=== PATIENT | male | born 1970 | race Caucasian/White ===

== ENCOUNTER → 2017-08-09 | Outpatient (CLI) | payer OTHER | LOC: M.ULTRA 13:17 | DX: N43.3 Hydrocele, unspecified (principal); N50.9 Disorder of male genital organs, unspecified ==

== ENCOUNTER → 2018-04-02 | Outpatient (CLI) | payer OTHER | LOC: M.RAD 13:27 | DX: M25.552 Pain in left hip (principal); M25.852 Other specified joint disorders, left hip ==

== ENCOUNTER 2019-11-05 04:58 | Emergency (ER) | payer OTHER ==
[~2019-11-05] VITALS: Ht 172.7 cm; Wt 72.6 kg
[2019-11-05 05:17] LABS: URINE BILIRUBIN NEGATIVE (Negative); URINE BLOOD 3+ (Negative); URINE CLARITY CLEAR; URINE COLOR YELLOW; URINE GLUCOSE-RANDOM NEGATIVE (Negative); URINE KETONES NEGATIVE (Negative); URINE LEUKOCYTES-REFLEX NEGATIVE (Negative); URINE NITRITE-REFLEX NEGATIVE (Negative); URINE PROTEIN 1+ (Negative); URINE SPECIFIC GRAVITY >= 1.030 (1.005-1.030); URINE UROBILINOGEN 0.2 E.U./dl (0.2-1.0)
[2019-11-05 05:27] LABS: BACTERIA-REFLEX 1-9 Few /HPF (None Seen); CASTS None Seen /LPF (None Seen); CRYSTALS None Seen /LPF (None Seen); MUCUS 4-6 Moderate strn/LPF (None Seen); SQUAMOUS 0-3 Few /LPF (0-3); URINE WBC-REFLEX 0-5 Rare /HPF (0-5)
[2019-11-05] MEDS ORDERED: FLEXERIL PO (06:30)
[2019-11-05] MEDS ORDERED: ZOFRAN ODT4 MG PO (06:30)
[2019-11-05] MEDS ORDERED: PERCOCET 7.5-31 EAC1 PO (06:30)
[2019-11-05 06:31] LABS: HEMATOCRIT 39.8 % (42.0-52.0); HEMOGLOBIN 13.9 gm/dL (14.0-18.0); MCH 30.6 pg (26.0-34.0); MCHC 34.8 g/dL (28.0-37.0); MPV 7.5 fl. (7.2-11.1); NUCLEATED RBCS 0 /100WBC; PLATELET COUNT* 240 thou/uL (150-400); RBC 4.53 mil/uL (4.50-6.00); RDW-CV 13.5 % (10.5-14.5); WBC 9.7 thou/uL (4.0-11.0)
[2019-11-05 06:36] LABS: CREATININE 1.4 mg/dL (0.6-1.3); POTASSIUM 4.3 mmol/L (3.5-5.1)
[2019-11-05 07:00] VITALS: BP 125/75
[2019-11-05 07:14] LABS: ABSOLUTE LYMPHOCYTES 1.4 thou/uL (0.8-5.3); ABSOLUTE MONOCYTES 0.1 thou/uL (0.0-1.2); ABSOLUTE NEUTROPHILS 8.2 thou/uL (1.6-8.1); PLATELET ESTIMATE ADEQUATE
== END 2019-11-05 07:00 | disposition home or self-care (01) ==
LOC: M.ERS 04:58
PROVIDERS: Emergency Medicine
DX: N20.0 Calculus of kidney (principal); R19.7 Diarrhea, unspecified; R11.10 Vomiting, unspecified